=== PATIENT | female | born 1990 | race Caucasian/White ===

== ENCOUNTER 2021-01-05 14:12 | Emergency (ER) | payer MEDICAID ==
--- NOTE | 2021-01-05 15:27 | EDM.PDOC ---
ED HPI GENERAL MEDICAL PROBLEM - General Chief Complaint: Abdominal Pain Stated Complaint: stomach/ovarian pain Time Seen by Provider: 01/05/21 14:35 Source of Information: Reports: Patient History Limitations: Reports: No Limitations - History of Present Illness INITIAL COMMENTS - FREE TEXT/NARRATIVE: presented to the ER with a c/o non specific abdominal pain for awhile. She reports an onset of a year and some areas got worse today. no N/V/D, but reports changes in stool consistency. pain is cramping, comes and goes. nothing makes it worse.. finished her period 2-3 days. good PO intake reports a h/o GERD and daily ETOH consumption. no urinary symptoms Left Abdomen Pain Score (Numeric/FACES): 4 - Related Data Allergies Allergy/AdvReac Type Severity Reaction Status Date / Time No Known Allergies Allergy Verified 01/05/21 15:34 Home Meds: Home Meds Pantoprazole 20 mg PO BIDAC #14 tab. 01/05/21 [Rx] polyethylene glycoL 3350 [MiraLAX] 17 gm PO DAILY #30 packet 01/05/21 [Rx] ED ROS GENERAL - Review of Systems Review Of Systems: See Below Constitutional: Reports: No Symptoms HEENT: Reports: No Symptoms Respiratory: Reports: No Symptoms Cardiovascular: Reports: No Symptoms GI/Abdominal: Reports: Abdominal Pain, Constipation : Reports: No Symptoms Musculoskeletal: Reports: No Symptoms Skin: Reports: No Symptoms Neurological: Reports: No Symptoms ED EXAM, GI/ABD - Physical Exam Exam: See Below Exam Limited By: No Limitations General Appearance: Alert, WD/WN, No Apparent Distress Head: Atraumatic Respiratory/Chest: No Respiratory Distress Cardiovascular: Normal Peripheral Pulses Course - Orders/Labs/Meds Labs: Laboratory Tests 01/05/21 01/05/21 01/05/21 Range/Units 14:35 14:35 14:35 WBC 10.1 (4.0-11.0) K/uL RBC 4.53 (3.80-5.80) M/uL Hgb 14.9 (11.5-16.5) g/dL Hct 44.9 (37.0-47.0) % MCV 99 H (76-96) fL MCH 32.9 H (27.0-32.0) pg MCHC 33.2 (31.0-35.0) g/dL RDW 12.7 (11.0-16.0) % Plt Count 253 (150-500) K/uL MPV 10.3 H (6.0-10.0) fL Sodium 141 (136-145) mmol/L Potassium 4.6 (3.5-5.1) mmol/L Chloride 103 (98-107) mmol/L Carbon Dioxide 28.4 (21.0-32.0) mmol/L Anion Gap 14.2 (5.0-15.0) mmol/L BUN 12 (8-26) mg/dL Creatinine 0.70 (0.55-1.02) mg/dL Est Cr Clr Drug Dosing TNP Estimated GFR (MDRD) > 60 (>60) MLS/MIN BUN/Creatinine Ratio 17.1 (6-25) Glucose 95 (74-100) mg/dL Calcium 8.6 (8.5-10.1) mg/dL Total Bilirubin 0.2 (0.0-1.0) mg/dL AST 22 (15-37) U/L ALT 34 (12-78) U/L Alkaline Phosphatase 101 (46-116) U/L Total Protein 7.4 (6.4-8.2) g/dL Albumin 3.5 (3.4-5.0) g/dL Globulin 3.9 (2.2-4.2) g/dL Albumin/Globulin Ratio 0.9 (0.8-2.0) Urine Color Yellow Urine Appearance Clear (CLEAR) Urine pH 7.5 (5.0-8.0) Ur Specific [place] 1.025 (1.003-1.030) Urine Protein Negative (NEGATIVE) mg/dL Urine Glucose (UA) Negative (NEGATIVE) mg/dL Urine Ketones Negative (NEGATIVE) mg/dL Urine Occult Blood Small H (NEGATIVE) Urine Nitrite Negative (NEGATIVE) Urine Bilirubin Negative (NEGATIVE) Urine Urobilinogen 0.2 (0.2-1.0) E.U./dL Ur Leukocyte Esterase Negative (NEGATIVE) Urine RBC 5-10 H /HPF Urine WBC 0-5 H /HPF Ur Squamous Epith Cells Moderate /HPF Urine HCG, Qual (NEGATIVE) 01/05/ Range/Units 15:02 WBC (4.0-11.0) K/uL RBC (3.80-5.80) M/uL Hgb (11.5-16.5) g/dL Hct (37.0-47.0) % MCV (76-96) fL MCH (27.0-32.0) pg MCHC (31.0-35.0) g/dL RDW (11.0-16.0) % Plt Count (150-500) K/uL MPV (6.0-10.0) fL Sodium (136-145) mmol/L Potassium (3.5-5.1) mmol/L Chloride (98-107) mmol/L Carbon Dioxide (21.0-32.0) mmol/L Anion Gap (5.0-15.0) mmol/L BUN (8-26) mg/dL Creatinine (0.55-1.02) mg/dL Est Cr Clr Drug Dosing Estimated GFR (MDRD) (>60) MLS/MIN BUN/Creatinine Ratio (6-25) Glucose (74-100) mg/dL Calcium (8.5-10.1) mg/dL Total Bilirubin (0.0-1.0) mg/dL AST (15-37) U/L ALT (12-78) U/L Alkaline Phosphatase (46-116) U/L Total Protein (6.4-8.2) g/dL Albumin (3.4-5.0) g/dL Globulin (2.2-4.2) g/dL Albumin/Globulin Ratio (0.8-2.0) Urine Color Urine Appearance (CLEAR) Urine pH (5.0-8.0) Ur Specific [place] (1.003-1.030) Urine Protein (NEGATIVE) mg/dL Urine Glucose (UA) (NEGATIVE) mg/dL Urine Ketones (NEGATIVE) mg/dL Urine Occult Blood (NEGATIVE) Urine Nitrite (NEGATIVE) Urine Bilirubin (NEGATIVE) Urine Urobilinogen (0.2-1.0) E.U./dL Ur Leukocyte Esterase (NEGATIVE) Urine RBC /HPF Urine WBC /HPF Ur Squamous Epith Cells /HPF Urine HCG, Qual Negative (NEGATIVE) Meds: Medications Discontinued Medications Generic Name Dose Route Start Last Admin Trade Name Freq PRN Reason Stop Dose Admin Magnesium Citrate 296 ml 01/05/21 15:23 01/05/21 15:42 Magnesium Citrate Solution 296 Ml Bottle PO 01/05/21 15:24 296 ml ONETIME ONE Administration - Re-Assessments/Exams Free Text/Narrative Re-Assessment/Exam: vitals WNL Labs were ordered -- CBC, UA, BMP, HCG all WNL no concerns was given mag citrates - but patient wanted to try this at home and not in the ER for her comfort Departure - Departure Time of Disposition: 15:53 Disposition: Home, Self-Care 01 Condition: Good Clinical Impression: Constipation Qualifiers: Constipation type: slow transit constipation Qualified Code(s): K59.01 - Slow transit constipation GERD (gastroesophageal reflux disease) Qualifiers: Esophagitis presence: without esophagitis Qualified Code(s): K21.9 - Gastro- esophageal reflux disease without esophagitis - Discharge Information *PRESCRIPTION DRUG MONITORING PROGRAM REVIEWED*: Not Applicable *COPY OF PRESCRIPTION DRUG MONITORING REPORT IN PATIENT TISH: Not Applicable Prescriptions: polyethylene glycoL 3350 [MiraLAX] 17 gm PO DAILY #30 packet Pantoprazole 20 mg PO BIDAC #14 tab.dr Instructions: Food Choices for Gastroesophageal Reflux Disease, Adult, [id number], Heartburn, [id number], Constipation, Adult, [id number], G astroesophageal Reflux Disease, Adult, [id number] Referrals: PCP,None [Primary Care Provider] - Forms: ED Department Discharge Additional Instructions: - start taking stool softeners and acid reflux meds as prescribed - increase fluids intake to at least 3 lit a day - follow up with a PCP next week if symptoms persisted - return to the ER if pain got wore, fever or any concerns - Problem List & Annotations (1) Constipation SNOMED Code(s): 36860493 Code(s): K59.00 - CONSTIPATION, UNSPECIFIED Status: Acute Priority: Low Qualifiers: Constipation type: slow transit constipation Qualified Code(s): K59.01 - Slow transit constipation (2) GERD (gastroesophageal reflux disease) SNOMED Code(s): 479714401 Code(s): K21.9 - GASTRO-ESOPHAGEAL REFLUX DISEASE WITHOUT ESOPHAGITIS Status: Acute Priority: Low Qualifiers: Esophagitis presence: without esophagitis Qualified Code(s): K21.9 - Gastro-esophageal reflux disease without esophagitis - Problem List Review Problem List Initiated/Reviewed/Updated: Yes - Assessment/Plan Plan: - start taking stool softeners and acid reflux meds as prescribed - increase fluids intake to at least 3 lit a day - follow up with a PCP next week if symptoms persisted - return to the ER if pain got wore, fever or any concerns
[2021-01-05] MEDS: Magnesium Citrate Solution 296 ML Bottle PO ONE (15:42)
== END 2021-01-05 16:03 | disposition home or self-care (01) ==
LOC: LB.ED 14:12
DX: K21.9 Gastro-esophageal reflux disease without esophagitis (principal); K59.01 Slow transit constipation; Z79.899 Other long term (current) drug therapy
CPT/HCPCS: 36415; 80053; 81001; 81025; 85027; 99284; A9270-GY

== ENCOUNTER 2022-06-29 14:05 | Emergency (ER) | payer MEDICAID ==
[2022-06-29] MEDS ORDERED: Nystatin Crm 30 GM Tube ONE (14:20)
== END 2022-06-29 14:30 | disposition home or self-care (01) ==
LOC: LB.ED 14:05
DX: B35.9 Dermatophytosis, unspecified (principal)
CPT/HCPCS: 99282; A9270

== ENCOUNTER 2023-03-24 08:44 | Emergency (ER) | payer MEDICAID ==
[2023-03-24] MEDS: Nystatin Topical Powder 15 GM Bottle TOP SCH (09:42)
[2023-03-25] MEDS: Nystatin Topical Powder 15 GM Bottle ONE (07:30)
== END 2023-03-24 09:49 | disposition home or self-care (01) ==
LOC: SUPCPDRO 08:44 → LB.ED 08:44
DX: L30.4 Erythema intertrigo (principal)
CPT/HCPCS: 99282; A9270-GY

== ENCOUNTER 2024-03-18 10:31 | Emergency (ER) | payer MEDICAID | END 2024-03-18 11:15 | disposition home or self-care (01) | LOC: LB.ED 10:31 | DX: L28.2 Other prurigo (principal); B37.2 Candidiasis of skin and nail; Z79.899 Other long term (current) drug therapy | CPT/HCPCS: 99282 ==